=== PATIENT | female | born 1960 | race Caucasian/White ===

== ENCOUNTER → 2016-11-01 | Outpatient (CLI) | payer OTHER | LOC: BMCIMAGING 11:26 | PROVIDERS: ATTEND Internal Medicine | DX: J40 Bronchitis, not specified as acute or chronic (principal) ==

== ENCOUNTER → 2016-12-27 | Outpatient (CLI) | payer OTHER | LOC: BHFA 08:00 | PROVIDERS: ATTEND Internal Medicine | DX: J44.9 Chronic obstructive pulmonary disease, unspecified (principal); F17.200 Nicotine dependence, unspecified, uncomplicated ==

== ENCOUNTER → 2016-12-28 | Outpatient (CLI) | payer OTHER | LOC: BHFA 08:30 | PROVIDERS: ATTEND Internal Medicine Cardiovascular Disease | DX: I25.10 Atherosclerotic heart disease of native coronary artery without angina pectoris (principal); R06.00 Dyspnea, unspecified; I25.2 Old myocardial infarction; R06.02 Shortness of breath | CPT/HCPCS: 78452; 93017; 93306; A9500; J2785 ==

== ENCOUNTER → 2017-07-25 | Outpatient (CLI) | payer OTHER ==
[~2017-07-25] MED LIST: GADOBUTROL 10 ML VIAL IVP ONE
== END ==
LOC: FIMAGING 18:43
PROVIDERS: ATTEND Psychiatry & Neurology Neurology
DX: R40.4 Transient alteration of awareness (principal)
CPT/HCPCS: 70553; A9585

== ENCOUNTER 2018-06-01 10:12 | Emergency (ER) | payer OTHER ==
[2018-06-01 10:27] VITALS: BP 164/102
[2018-06-01] MEDS: IBUPROFEN 600 MG TAB PO ONE (10:35)
[2018-06-01] MEDS: AMOXICILLIN/CLAVULANATE POT 875/125 MG TAB PO ONE (10:36)
--- NOTE | 2018-06-01 10:37 | EDPHY ---
H & P Time Seen by Provider: 06/01/18 10:23 HPI/ROS: HPI Dog bite. 58-year-old female by private vehicle with her friend. This patient was walking her dog when her dog was attacked by another dog in the park. The other dog was described as a large brown dog and was wearing a collar. This dog ran off before it could be clearly identified. Breaking up the dog fight, the patient was bitten in the right hand and wrist by the attacking talk. She is right-hand dominant. She complains of pain to to localize puncture bite wounds dorsal aspect right hand and right wrist. She is not sure when she last had a tetanus shot. ROS: Constitutional: No fever, no chills. No weakness. Musculoskeletal: Right hand and wrist pain. Skin: No rashes. As above. Neurological: No focal weakness or altered sensation. Past medical history: She is allergic to ciprofloxacin. Hepatitis-C, hypertension, coronary artery disease with stent placed, bipolar disorder, former opiate attic, traumatic brain injury. Social history: Nonsmoker. Here with her friend. No alcohol. Physical Exam: General Appearance: Alert, no distress. This patient is responding to questions appropriately and in full sentences. This patient appears well- hydrated and well-nourished. Eyes: Pupils equal and round no pallor or injection. No lid edema, erythema or injection. Right upper extremity exam: Significant for a 0.5 cm puncture type laceration mid dorsal hand over the 3rd mid metacarpal. She also has a smaller more superficial wound measuring approximately 0.25 cm dorsal distal radial wrist and more of a more superficial puncture about 2 mm distal ulnar are ventral wrist. No foreign body or deformity noted on palpation over these wounds. There is no pain elicited by axial compression of all digits, her hand and her wrist. Flexor and extensor function is normal. Neurologic function in the radial, ulnar are and median nerve distributions is normal. The right hand is neurovascularly intact. Neurological: Motor sensory function is grossly intact. Cranial nerves are normal. Gait is normal. Skin: Warm and dry, no rashes. As above. Extremities are symmetrical. All joints range without pain or impingement. Psychiatric: No agitation. No depression. Database: EKG: Imaging: Right hand and wrist x-ray series: Negative for fracture, subluxation, dislocation. No radiopaque foreign body. Interpreted by me. Procedures: Emergency department course: Triage vital signs reviewed. She is moderately hypertensive. Animal Control has been contacted. The dog did not appear ill in any way. This dog was wearing a collar and thought by the patient to be well domesticated. X-rays obtained of the patient's right hand and wrist to evaluate for possible foreign body. The patient was given 875 mg of Augmentin and 600 mg of ibuprofen. Tetanus vaccination administered. 11:00 a.m., the patient was re-evaluated. Results of x-rays discussed with her. Her wounds were all appropriately cleansed and dressed. I explained I would prescribe her Augmentin over the next 7 days. Animal Control came and interviewed the patient. The patient feels comfortable going home with her friend. Wound care and infection precautions discussed with her. Return to emergency department precautions and follow-up reviewed. All of her questions were answered. She was discharged in good condition. Differential Diagnosis: The differential diagnosis on this patient includes but is not limited to dog bite to right hand. Fracture, retained foreign body, tendon injury, significant neurovascular injury of the right hand unlikely. This represents a partial list of diagnoses considered. These considerations are based on history , physical exam, past history, reassessment and diagnostic testing. Constitutional: Initial Vital Signs Temperature (C) 37.3 C 06/01/18 10:18 Heart Rate 84 06/01/18 10:18 Respiratory Rate 16 06/01/18 10:18 Blood Pressure 164/102 H 06/01/18 10:18 O2 Sat (%) 94 06/01/18 10:18 O2 Delivery Mode Room Air Allergies/Adverse Reactions: ciprofloxacin [From Cipro] Allergy (Verified 06/01/18 10:28) Home Medications: Medication Instructions Recorded Amoxicillin/Clavulanate Pot 875 mg PO BID 7 Days tab 06/01/18 [Augmentin 875 mg tab] HCTZ (*) 06/01/18 Lexapro 06/01/18 Neurontin 100 MG (*) 06/01/18 Subutex 06/01/18 traZODone 06/01/18 Medical Decision Making - Data Points Medications Given: Discontinued Medications Amoxicillin/Clavulanate Potassium (Augmentin 875mg) 875 mg PO EDNOW ONE PRN Reason: Protocol Stop: 06/01/18 10:30 Last Admin: 06/01/18 10:36 Dose: 875 mg Ibuprofen (Motrin) 600 mg PO EDNOW ONE Stop: 06/01/18 10:30 Last Admin: 06/01/18 10:35 Dose: 600 mg Departure - Departure Disposition: Home, Routine, Self-Care Clinical Impression: Dog bite of right hand Condition: Good Instructions: Animal Bite (ED) Additional Instructions: Read and follow provided instructions. Follow-up with your primary care physician on Saturday or Saturday of this week for re-evaluation of your right hand. Take antibiotic as prescribed through entire course of treatment. Ibuprofen dosin mg every 6 hours with meals for the next 3 days only. Take only as needed for pain. Return to the emergency department for worsening pain, redness, swelling around the wound edges, redness going up your arm, fever, drainage of pus or other serious concerns. Referrals: Rodriguez Davis MD [Primary Care Provider] - As per Instructions Prescriptions: Amoxicillin/Clavulanate Pot [Augmentin 875 mg tab] 875 mg PO BID 7 Days tab
[2018-06-01] MEDS: TDAP ADULT 0.5 ML INJ (BOOSTRIX) IM ONE (10:59)
== END 2018-06-01 11:20 | disposition home or self-care (01) ==
LOC: CED 10:12
DX: S61.441A Puncture wound with foreign body of right hand, initial encounter (principal); W54.0XXA Bitten by dog, initial encounter; Y92.830 Public park as the place of occurrence of the external cause; Y93.K1 Activity, walking an animal; Z23 Encounter for immunization
CPT/HCPCS: 73120-PO; 73130-PO

== ENCOUNTER 2018-09-14 14:17 | Emergency (ER) | payer OTHER ==
[2018-09-14] MEDS ORDERED: ONDANSETRON 4 MG/2 ML VIAL IVP ONE (14:57)
--- NOTE | 2018-09-14 15:07 | EDPHY ---
H & P Smoking Status: Current every day smoker Time Seen by Provider: 09/14/18 14:47 HPI/ROS: This patient complains of cough, vomiting and diarrhea. She has been ill over the past week with the symptoms but reports worsening diarrhea today described as watery. She has associated nausea. Last episode of vomiting yesterday but she has anorexia and has not had anything to eat today. No p.o. Fluids either. She reports associated myalgias and nasal congestion. She describes her cough is productive of yellow sputum. She took a lift here. ROS: Constitutional: Subjective fevers. HEENT: Nasal congestion without sinus pain. No ear pain or sore throat Pulmonary: As per HPI. No hemoptysis. No respiratory distress Cardiovascular: She denies lightheadedness. No chest pain. GI: No abdominal pain. No hemoptysis or tarry stools. No hematochezia : No dysuria frequency urgency 10 point review of symptoms is performed and otherwise negative with exception of pertinent positives and negatives listed in HPI and ROS (Osei Swartz) Physical Exam: General Appearance: Alert, no distress. Eyes: Pupils equal and round no pallor or injection. ENT, Mouth: Mucous membranes dry. Respiratory: Rhonchi bilaterally. No rales. No wheezing Cardiovascular: Regular rate and rhythm. Gastrointestinal: Abdomen is soft and nontender, no masses, bowel sounds normal. Neurological: GCS 15. Skin: Warm and dry, no rashes. Musculoskeletal: Neck is supple nontender. Extremities are symmetrical, full range of motion. Psychiatric: Patient has a buoyant affect that seems almost like intoxication but she denies any alcohol intake or other recreational drugs. DIFFERENTIAL DIAGNOSIS: After history and physical exam differential diagnosis was considered for influenza, dehydration, pneumonia, acute bronchitis, viral gastroenteritis (Osei Swartz) Constitutional: Initial Vital Signs Temperature (C) 36.9 C 09/14/18 14:30 Heart Rate 100 09/14/18 14:30 Respiratory Rate 16 09/14/18 14:30 Blood Pressure 144/85 H 09/14/18 14:30 O2 Sat (%) 89 L 09/14/18 14:30 O2 Delivery Mode Room Air Allergies/Adverse Reactions: ciprofloxacin [From Cipro] Allergy (Verified 09/14/18 15:09) Home Medications: Medication Instructions Recorded HCTZ (*) 06/01/18 Lexapro 06/01/18 Neurontin 100 MG (*) 06/01/18 Subutex 06/01/18 traZODone 06/01/18 Ondansetron Odt [Zofran Odt] 4 - 8 mg PO Q4PRN PRN #4 tab 09/14/18 MDM/Departure - MDM Imaging Results: Imaging Impressions Chest X-Ray 09/14/18 14:57 Impression: Mild bronchitis. No other findings for acute cardiopulmonary abnormality. Medications Given: Discontinued Medications Ondansetron HCl (Zofran) 4 mg IVP EDNOW ONE Stop: 09/14/18 14:58 Last Admin: 09/14/18 15:21 Dose: 4 mg ED Course/Re-evaluation: IV normal saline, Zofran Flu swab obtained and sent. Chest x-ray pending Discussed this case with Dr. Perales at 3:00 p.m. With studies pending. He will follow up with studies and final disposition. Anticipate this patient going home after hydration. (Osei Swartz) 1500: Patient is signed out by Dr. Swartz at change of shift. Patient is awaiting flu results pulse chest x-ray. I went personally evaluated the patient. The patient states that she was feeling sick but slightly better. GENERAL: Well-appearing, in no acute distress, alert. Texting on lying in bed HEENT: Eyes normal to inspection, normal pharynx, no signs of dehydration. Normal appearing NECK: Normal, supple. RESPIRATORY: No respiratory distress. Clear to auscultation bilaterally, no rales, rhonchi or wheezing. CVS: Regular rate and rhythm, no rubs, murmurs, or gallops. ABDOMEN: Soft, nontender, nondistended, no organomegaly. Benign BACK: Normal to inspection, no CVA tenderness. SKIN: Normal color, no rash, warm, dry. No pallor. EXTREMITIES: No pedal edema, no calf tenderness, no Homans sign or cords, no joint swelling. NEURO/PSYCH: Alert and oriented, normal mood and affect, normal motor sensory exam. Flu swab is negative Chest x-ray: No acute disease noted. Please refer the dictated report. Rechecked the patient. She was appearing well. I discussed her study results. I answered all her questions. Patient felt comfortable discharge. She was given warnings prior to leaving. She is given a prescription of Zofran and a take-home pack. (Dimple Perales) - Depart Disposition: Home, Routine, Self-Care Clinical Impression: Viral syndrome Vomiting Qualifiers: Vomiting type: unspecified Vomiting Intractability: non-intractable Nausea presence: with nausea Qualified Code(s): R11.2 - Nausea with vomiting, unspecified Condition: Good Instructions: Acute Nausea and Vomiting (ED), Viral Syndrome (ED) Additional Instructions: Return with increasing abdominal pain, fever, shortness of breath or any other concerns. Stay well hydrated. Use Zofran as needed. Prescriptions: Ondansetron Odt [Zofran Odt] 4 - 8 mg PO Q4PRN PRN #4 tab PRN Reason: Vomiting Referrals: Luisa Correa DO [Doctor of Osteopathy] - 2-3 days, call for appt.
[2018-09-14] MEDS ORDERED: ONDANSETRON 4MG PREPACK#2 BTL TAKEHOME ONE (15:57)
[2018-09-14 16:15] VITALS: BP 117/77
== END 2018-09-14 16:12 | disposition home or self-care (01) ==
LOC: CED 14:17
DX: B34.9 Viral infection, unspecified (principal); J40 Bronchitis, not specified as acute or chronic; R11.2 Nausea with vomiting, unspecified
CPT/HCPCS: 71046; 96374; 99284; J2405; 80048-ER

== ENCOUNTER 2018-10-04 10:56 | Emergency (ER) | payer OTHER ==
--- NOTE | 2018-10-04 11:49 | EDPHY ---
H & P Time Seen by Provider: 10/04/18 11:00 HPI/ROS: CHIEF COMPLAINT: Wrist pain HISTORY OF PRESENT ILLNESS: Patient states she slipped on ice yesterday twice. The 1st time she landed on her bottom and as she tried to get up and take a step she slipped and fell again landing on her right wrist. She states it was immediately painful. She did use ice on it during the evening but pain was significant today so she came in for evaluation. Wrist is swollen, hurts to move, denies numbness or tingling. No open wounds. Denies other injuries. REVIEW OF SYSTEMS: Negative except per HPI. General Appearance: Alert, no distress. Eyes: Pupils equal and round no icterus Respiratory: No respiratory distress Neurological: Awake, alert, no focal deficits. Skin: Warm and dry, no rashes. Musculoskeletal: Neck is supple nontender. Right wrist is swollen, tender to palpation diffusely, distal circulation, sensation, movement intact. Psychiatric: Patient is oriented X 3, there is no agitation. Medical/surgical history: Hepatitis-C, hypertension, coronary artery disease with stent, traumatic brain injury, bipolar disorder. Former opiate addict. Social history: Smokes tobacco. Smoking Status: Current every day smoker Constitutional: Initial Vital Signs Temperature (C) 36.8 C 10/04/18 11:02 Heart Rate 75 10/04/18 11:02 Respiratory Rate 16 10/04/18 11:02 Blood Pressure 138/84 H 10/04/18 11:02 O2 Sat (%) 92 10/04/18 11:02 O2 Delivery Mode Room Air Allergies/Adverse Reactions: ciprofloxacin [From Cipro] Allergy (Verified 10/04/18 11:08) Home Medications: Medication Instructions Recorded HCTZ (*) 06/01/18 Lexapro 06/01/18 Neurontin 100 MG (*) 06/01/18 Subutex 06/01/18 traZODone 06/01/18 Seroquel 50 mg (*) 10/04/18 Medical Decision Making - Diagnostics Imaging Results: Wrist x-ray shows no obvious fracture however widening between the scaphoid and lunate bones of the wrist consistent with ligamentous injury. ED Course/Re-evaluation: Rings removed from right 4th finger. Differential Diagnosis: Patient with likely ligamentous injury to the right wrist after fall on ice yesterday. No evidence of fracture or dislocation. No neurovascular compromise. Likely will need surgical intervention for this injury. Referred to Dr. Denise, orthopedist and hand surgeon on-call. Placed in a sugar-tong splint with strict nonweightbearing instructions. Emphasized the importance of follow-up to maintain dominant hand function. Patient understands home care and follow-up plan. Stable for discharge. Departure - Departure Disposition: Home, Routine, Self-Care Clinical Impression: Right wrist injury Instructions: Wrist Injury (ED) Additional Instructions: I thank you have a ligamentous injury of your right wrist involving the scapholunate ligaments. Keep the splint on until you are seen by the orthopedist. Use ice, elevation for pain and sling as well. Call Saturday to get an appoint with Dr. Denise for next week. Return to the emergency department for worsening or other concerning symptoms. Referrals: Luisa Correa DO [Primary Care Provider] - As per Instructions Osei Denise MD [Medical Doctor] - As per Instructions
[2018-10-04 12:19] VITALS: BP 147/91
== END 2018-10-04 12:18 | disposition home or self-care (01) ==
LOC: CED 10:56
PROC: 2W3EX1Z Immobilization of Right Hand using Splint (ICD-10-PCS; principal; 2018-10-04)
DX: S63.511A Sprain of carpal joint of right wrist, initial encounter (principal); I10 Essential (primary) hypertension; B19.20 Unspecified viral hepatitis C without hepatic coma; W00.0XXA Fall on same level due to ice and snow, initial encounter; Y92.480 Sidewalk as the place of occurrence of the external cause; Y93.01 Activity, walking, marching and hiking
CPT/HCPCS: 29125; 73110; 99283; A4565